=== PATIENT | female | born 1950 | race Caucasian/White ===

== ENCOUNTER → 2018-11-08 | Outpatient (CLI) | payer MEDICARE ==
--- NOTE | 2018-11-08 16:42 | KCIC ---
DEXA scan 11/08/2018 Clinical History: Loss of height. Hyperthyroidism. Fractures. Postmenopausal female. Risk factors for osteoporosis. Technique: DEXA of the lumbar spine and left hip was performed. FINDINGS: No previous studies are available for comparison. The bone mineral density of the lumbar spine is 1.00 g/cm2 which corresponds with a T-score of -0.4 . This is within normal limits. The mean bone mineral density of the left hip is 0.691 g/sq cm. This corresponds to a T score of -2.1. This is consistent with moderate to severe osteopenia. By World [employer] on Osteoporosis criteria, a T score of 0 to-1 SD is considered to be within normal limits. A T score of -1 to -2.5 SD is considered osteopenia. A T score less than -2.5 SD is considered osteoporosis Impression: 1. The mean bone mineral density of the lumbar spine is within normal limits. 2. Moderate to severe osteopenia of the left hip. Electronically signed by: Tristin Ocasio MD (11/08/2018 4:39 PM) [id number]
--- NOTE | 2018-11-19 13:07 | KCIC ---
Bilateral digital screening mammograms and tomosynthesis Reason for examination: Routine screening. Comparison is made to previous study dated September 07, 2014 and June 27, 2012 [facility] in [place], [place] Routine CC and MLO digital views obtained. Interpretation was made with the benefit of CAD. The skin and nipples show no abnormalities. No abnormal lymph nodes are seen. The breast parenchyma is scattered fibroglandular elements. (Breast density: Category B.) There are no suspicious masses, suspicious calcifications or architectural distortions. Indeterminate subcentimeter nodular mass right upper outer breast 6 m from the nipple on CC tomosynthesis image 27 and MLO image 21 and separate subcentimeter nodular mass left upper outer breast 3 cm from the nipple present on CC tomosynthesis image 14 and MLO image 15. Bilateral benign calcifications. Impression: Subcentimeter indeterminate nodules of the upper outer quadrants of both breasts. Further assessment with bilateral breast ultrasound is advised. BI-RADS Category 0: Incomplete examination. Additional imaging is advised.. "Our facility is accredited by the [employer] Mammography [employer]." This patient's information has been entered into a reminder system for the patient to be notified with the results of her examination and a target date for the next mammogram. Electronically signed by: Desean Maguire MD (11/19/2018 1:04 PM) [id number]
== END | disposition home or self-care (01) ==
LOC: KCIC DEXA 09:47
PROVIDERS: ATTEND Nurse Practitioner Family
DX: Z12.31 Encounter for screening mammogram for malignant neoplasm of breast (principal); N63.21 Unspecified lump in the left breast, upper outer quadrant; N63.11 Unspecified lump in the right breast, upper outer quadrant; N64.89 Other specified disorders of breast; M85.88 Other specified disorders of bone density and structure, other site; E05.90 Thyrotoxicosis, unspecified without thyrotoxic crisis or storm; Z78.0 Asymptomatic menopausal state
CPT/HCPCS: 77063; 77067; 77080

== ENCOUNTER → 2018-12-03 | Outpatient (CLI) | payer MEDICARE ==
--- NOTE | 2018-12-03 13:42 | KCIC ---
EXAM: Bilateral breast sonogram. HISTORY: 68-year-old female presents for evaluation of nodularity within both breasts demonstrated on a mammogram dated 11/08/2018. TECHNIQUE: Sonographic imaging of both breasts including all 4 quadrants and the retroareolar regions was performed. COMPARISON: Mammogram dated 11/08/2018. FINDINGS: Sonographic imaging of the right breast demonstrates a suspected benign fibrocystic lesion at the 11:00 position 5 cm from the nipple measuring 3.8 mm. No additional lesion is seen within the right breast. Sonographic imaging of the left breast demonstrates a tiny suspected benign fibrous cystic lesion at the 1:00 position 3 cm from the nipple measuring 2.3 mm. No additional lesion is seen within the left breast. IMPRESSION: 1. Tiny suspected benign fibrocystic lesions within both breasts, possibly corresponding with areas of mammographic nodularity of concern. 2. BI-RADS Category 3: Probably benign finding(s). Short term follow up with a diagnostic mammogram and bilateral sonogram in 6 months is recommended to confirm mammographic and sonographic stability. Electronically signed by: Lucrecia Elizondo MD (12/03/2018 1:39 PM) [id number]
== END | disposition home or self-care (01) ==
LOC: KCIC US 12:52
PROVIDERS: ATTEND Nurse Practitioner Family
DX: R92.8 Other abnormal and inconclusive findings on diagnostic imaging of breast (principal)
CPT/HCPCS: 76641